=== PATIENT | male | born 1965 | race Hispanic/Latino ===

== ENCOUNTER 2022-03-07 19:01 | Emergency (ER) | payer SELFPAY ==
[2022-03-07 19:34] VITALS: BP 120/71
--- NOTE | 2022-03-07 20:48 | Emergency Department Report ---
ED ENT HPI - General Chief complaint: Dental/Oral Stated complaint: RT SIDE PAIN Source: patient Mode of arrival: Ambulatory Limitations: No Limitations - History of Present Illness Initial comments: 57-year male presents to the hospital planing of pain to his right posterior gums, tongue, and possible dental infection versus canker sores. Patient states the pain is severe and radiates to his ear and right jaw making it difficult for him to sleep. He is trying [id number] pain medication without relief. Pain is currently rated moderate to severe in intensity and worse with palpation. No reports of fever or facial swelling - Related Data Previous Rx's Medication Instructions Recorded Last Taken Type Clindamycin [Clindamycin CAP] 450 mg PO Q8HR #21 capsule 03/07/22 Unknown Rx HYDROcodone/APAP 5-325 [Satanta 1 each PO Q6HR PRN #15 tablet 03/07/22 Unknown Rx 5/325] Ibuprofen [Motrin] 800 mg PO Q8HR PRN #20 tablet 03/07/22 Unknown Rx Allergies Allergy/AdvReac Type Severity Reaction Status Date / Time No Known Allergies Allergy Unverified 03/07/22 19:29 ED Dental HPI - General Chief complaint: Dental/Oral Stated complaint: RT SIDE PAIN Source: patient Mode of arrival: Ambulatory Limitations: No Limitations - Related Data Previous Rx's Medication Instructions Recorded Last Taken Type Clindamycin [Clindamycin CAP] 450 mg PO Q8HR #21 capsule 03/07/22 Unknown Rx HYDROcodone/APAP 5-325 [Sat[place] 1 each PO Q6HR PRN #15 tablet 03/07/22 Unknown Rx 5/325] Ibuprofen [Motrin] 800 mg PO Q8HR PRN #20 tablet 03/07/22 Unknown Rx Allergies Allergy/AdvReac Type Severity Reaction Status Date / Time No Known Allergies Allergy Unverified 03/07/22 19:29 ED Review of Systems ROS: Stated complaint: RT SIDE PAIN Other details as noted in HPI Comment: All other systems reviewed and negative ED Past Medical Hx - Medications Home Medications: Home Medications Medication Instructions Recorded Confirmed Last Taken Type Clindamycin [Clindamycin CAP] 450 mg PO Q8HR #21 capsule 03/07/22 Unknown Rx HYDROcodone/APAP 5-325 [[place] 1 each PO Q6HR PRN #15 tablet 03/07/22 Unknown Rx 5/325] Ibuprofen [Motrin] 800 mg PO Q8HR PRN #20 tablet 03/07/22 Unknown Rx ED Physical Exam - General Limitations: No Limitations - Other Other exam information: General: No acute distress Head: Atraumatic Eyes: normal appearance ENT: At area of posterior right molar patient has a white small pustular area which could represent a small ulceration or an early apical abscess. Patient also has pain to palpation of that tooth and sensitivity to the tongue in that area. No signs of facial swelling or airway compromise Neck: Normal appearance, no midline tenderness Chest: Clear to auscultation bilaterally CV: Regular rate and rhythm Abdomen: Soft, normal bowel sounds, nontender, nondistended, no rebound or guarding Back: Normal inspection Extremity: Normal inspection, full range of motion Neuro: Alert O x 3, no facial asymmetry, speech clear, no gross motor sensory deficit Psych: Appropriate behavior Skin: No rash ED Course Vital Signs 03/07/22 19:32 Temperature 98.4 F Pulse Rate 90 Respiratory 16 Rate Blood Pressure 120/71 O2 Sat by Pulse 95 Oximetry ED Medical Decision Making - Medical Decision Making Patient having significant dental and gum pain with possible early apical abscess versus canker sore. Patient is not receiving any relief with [id number] medication. He would be treated with antibiotic for oral moses with coverage for dental abscess and prescribed pain medication. Outpatient follow-up with dentist for further evaluation is recommended. Critical Care Time: No Critical care attestation.: If time is entered above; I have spent that time in minutes in the direct care of this critically ill patient, excluding procedure time. ED Disposition Clinical Impression: Dental abscess Disposition: HOME / SELF CARE / HOMELESS Is pt being admited?: No Does the pt Need Aspirin: No Condition: Stable Instructions: Dental Abscess, [id number] Additional Instructions: Take the medication as prescribed. Follow-up with your dentist, the dentist of your choice, or the clinic provided. Return if symptoms worsen as indicated by your discharge instructions. Prescriptions: Clindamycin [Clindamycin CAP] 450 mg PO Q8HR #21 capsule Ibuprofen [Motrin] 800 mg PO Q8HR PRN #20 tablet PRN Reason: Pain , Severe (7-10) HYDROcodone/APAP 5-325 [[place] 5/325] 1 each PO Q6HR PRN #15 tablet PRN Reason: Pain Referrals: [facility] [Outside] - 3-5 Days Time of Disposition: 20:46
== END 2022-03-07 21:37 | disposition home or self-care (01) ==
LOC: ED 19:01
DX: K04.7 Periapical abscess without sinus (principal)
CPT/HCPCS: 99282